=== PATIENT | male | born 1965 | race Caucasian/White ===

== ENCOUNTER 2016-11-18 19:04 | Inpatient (IN) | payer OTHER ==
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
[2016-11-18] MEDS ORDERED: CEFAZOLIN 2 GM/DEXTROSE/100 ML BAG IV ONE ×2 (19:05→19:15)
[2016-11-18] MEDS ORDERED: fentaNYL 100 MCG/2 ML INJ IVP ONE ×3 (19:07→19:20)
[2016-11-18] MEDS ORDERED: TDAP ADULT 0.5 ML INJ (BOOSTRIX) IM ONE (19:08)
[2016-11-18] MEDS ORDERED: SUCCINYLCHOLINE CHLORIDE 200 MG/10 ML VIAL IVP ONE (19:10)
[2016-11-18] MEDS ORDERED: ETOMIDATE 20 MG/10 ML VIAL IVP ONE (19:10)
[2016-11-18] MEDS ORDERED: PROPOFOL/EMULSION 1,000 MG/100 ML BOTTLE IV ONE (19:13)
[2016-11-18] MEDS ORDERED: KETAMINE 100 MG/10 ML SYR IVP ONE ×3 (19:14→19:33)
[2016-11-18] MEDS ORDERED: ceFAZolin 2 GM/DEXTROSE 100 ML IV ONE (19:15)
[2016-11-18] MEDS ORDERED: MIDAZOLAM 2 MG/2 ML VIAL ONE (19:19)
[2016-11-18 19:20] LABS: % IMMATURE GRANULYOCYTES 0.3 % (0.0-1.1); ABSOLUTE IMMATURE GRANULOCYTES 0.02 10^3/uL (0.00-0.10); ADD DIFF? NO; ADD MORPH? NO; ADD SCAN? NO; ATYPICAL LYMPHOCYTE FLAG 20 (0-99); FRAGMENT RBC FLAG 0 (0-99); HEMATOCRIT 45.7 % (40.0-51.0); HEMOGLOBIN 15.6 g/dL (13.7-17.5); LEFT SHIFT FLG 0 (0-99); LIPEMIA HEMOLYSIS FLAG 90 (0-99); MEAN CELL HEMOGLOBIN 31.3 pg (27.9-34.1); MEAN CELL HEMOGLOBIN CONCENTR. 34.1 g/dL (32.4-36.7); MEAN CELL VOLUME 91.6 fL (81.5-99.8); MEAN PLATELET VOLUME 11.4 fL (8.7-11.7); PLATELET CLUMPS FLAG 10 (0-99); PLATELET COUNT 198 10^3/uL (150-400); RED BLOOD CELL COUNT 4.99 10^6/uL (4.40-6.38)
[2016-11-18] MEDS ORDERED: MIDAZOLAM 2 MG/2 ML VIAL IVP ONE ×2 (19:20→19:37)
[2016-11-18] MEDS ORDERED: fentaNYL 100 MCG/2 ML INJ ONE ×2 (19:28→19:34)
[2016-11-18] MEDS ORDERED: ONDANSETRON 4 MG/2 ML VIAL ONE (19:28)
[2016-11-18] MEDS ORDERED: SUCCINYLCHOLINE CHLORIDE*ANESTHESIA ONLY*200 MG/10 ML SYR IVP ONE ×2 (19:34→19:41)
[2016-11-18 19:35] LABS: INR 1.01 (0.83-1.16); PROTIME(PATIENT) 13.2 SEC (12.0-15.0)
[2016-11-18] MEDS ORDERED: ROCURONIUM 100 MG/10 ML VIAL ONE (19:35)
[2016-11-18] MEDS ORDERED: ETOMIDATE 40 MG/20 ML INJ ONE (19:35)
[2016-11-18 19:40] LABS: ANION GAP 16 mEq/L (8-16); CALCIUM 9.5 mg/dL (8.5-10.4); CARBON DIOXIDE 20 mEq/l (22-31); CHLORIDE 104 mEq/L (97-110); CREATININE 0.8 mg/dL (0.7-1.3); GLOMERULAR FILTRATION RATE > 60; GLUCOSE 116 mg/dL (70-100); SODIUM 140 mEq/L (134-144)
[2016-11-18 19:45] LABS: APTT 20.6 SEC (23.0-38.0)
[2016-11-18] MEDS ORDERED: IOPAMIDOL (ISOVUE-300) 150 ML BTL IV ONE (20:05)
[2016-11-18] MEDS ORDERED: IOPAMIDOL (ISOVUE 370) 100 ML BTL IV ONE (20:16)
[2016-11-18 20:44] LABS: % IMMATURE GRANULYOCYTES 0.3 % (0.0-1.1); ABSOLUTE IMMATURE GRANULOCYTES 0.04 10^3/uL (0.00-0.10); ADD DIFF? NO; ADD MORPH? NO; ADD SCAN? NO; ATYPICAL LYMPHOCYTE FLAG 0 (0-99); FRAGMENT RBC FLAG 0 (0-99); HEMATOCRIT 44.6 % (40.0-51.0); HEMOGLOBIN 15.4 g/dL (13.7-17.5); LEFT SHIFT FLG 0 (0-99); LIPEMIA HEMOLYSIS FLAG 90 (0-99); MEAN CELL HEMOGLOBIN 32.3 pg (27.9-34.1); MEAN CELL HEMOGLOBIN CONCENTR. 34.5 g/dL (32.4-36.7); MEAN CELL VOLUME 93.5 fL (81.5-99.8); PLATELET CLUMPS FLAG 0 (0-99); PLATELET COUNT 172 10^3/uL (150-400); RED BLOOD CELL COUNT 4.77 10^6/uL (4.40-6.38); RED CELL DISTRIBUTION WIDTH 13.2 % (11.5-15.2)
[2016-11-18 20:49] LABS: INR 1.16 (0.83-1.16); PROTIME(PATIENT) 14.8 SEC (12.0-15.0)
[2016-11-18 20:50] LABS: APTT 22.4 SEC (23.0-38.0)
[2016-11-18] MEDS ORDERED: DEXMEDETOMIDINE HCL 200 MCG/2 ML VIAL IV ONE (21:12)
[2016-11-18] MEDS ORDERED: NALOXONE HCL 0.4 MG/ML INJ IVP PRN ×2 (21:56→22:00)
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
[2016-11-18] MEDS: HYDROmorphONE/DILAUDID 6 MG/30 ML PCA IV PRN (22:22)
[2016-11-18] MEDS: ONDANSETRON 4 MG/2 ML VIAL IVP PRN (22:25)
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
[2016-11-18] MEDS: ERTAPENEM 1 GM in NS 100 ML IV SCH (22:27)
[2016-11-18 22:29] LABS: INR 1.13 (0.83-1.16); PROTIME(PATIENT) 14.4 SEC (12.0-15.0)
[2016-11-18 22:31] LABS: ANION GAP 8 mEq/L (8-16); CALCIUM 8.2 mg/dL (8.5-10.4); CARBON DIOXIDE 21 mEq/l (22-31); CHLORIDE 105 mEq/L (97-110); CREATININE 0.8 mg/dL (0.7-1.3); GLOMERULAR FILTRATION RATE > 60; GLUCOSE 140 mg/dL (70-100); POTASSIUM 4.9 mEq/L (3.5-5.2); SODIUM 134 mEq/L (134-144)
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
[2016-11-19] MEDS: HYDROmorphONE/DILAUDID 6 MG/30 ML PCA IV PRN ×3 (06:06→18:34)
[2016-11-19] MEDS ORDERED: DIAZEPAM 5 MG TAB PO PRN (08:07)
[2016-11-19] MEDS: NS 1,000 ML IV SCH ×2 (09:00→17:59)
[2016-11-19 09:11] LABS: % IMMATURE GRANULYOCYTES 0.2 % (0.0-1.1); ABSOLUTE IMMATURE GRANULOCYTES 0.02 10^3/uL (0.00-0.10); ADD DIFF? NO; ADD MORPH? NO; ADD SCAN? NO; ATYPICAL LYMPHOCYTE FLAG 0 (0-99); FRAGMENT RBC FLAG 0 (0-99); HEMATOCRIT 45.3 % (40.0-51.0); HEMOGLOBIN 15.4 g/dL (13.7-17.5); LEFT SHIFT FLG 30 (0-99); LIPEMIA HEMOLYSIS FLAG 90 (0-99); MEAN CELL HEMOGLOBIN 31.1 pg (27.9-34.1); MEAN CELL VOLUME 91.5 fL (81.5-99.8); MEAN PLATELET VOLUME 12.2 fL (8.7-11.7); PLATELET CLUMPS FLAG 0 (0-99); PLATELET COUNT 161 10^3/uL (150-400); RED BLOOD CELL COUNT 4.95 10^6/uL (4.40-6.38); RED CELL DISTRIBUTION WIDTH 13.4 % (11.5-15.2)
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
[2016-11-19 09:34] LABS: ANION GAP 9 mEq/L (8-16); CALCIUM 8.1 mg/dL (8.5-10.4); CARBON DIOXIDE 22 mEq/l (22-31); CHLORIDE 108 mEq/L (97-110); CREATININE 0.8 mg/dL (0.7-1.3); GLOMERULAR FILTRATION RATE > 60; GLUCOSE 143 mg/dL (70-100); POTASSIUM 5.2 mEq/L (3.5-5.2); SODIUM 139 mEq/L (134-144)
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
[2016-11-19] MEDS: ONDANSETRON 4 MG/2 ML VIAL IVP PRN (16:15)
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
[2016-11-19] MEDS: DIAZEPAM 10 MG/2 ML SYR IVP PRN (20:23)
[2016-11-19] MEDS: ERTAPENEM 1 GM in NS 100 ML IV SCH (20:24)
[2016-11-19] MEDS: LORazepam 2 MG/ML INJ IVP PRN (21:38)
[2016-11-20] MEDS: HYDROmorphONE/DILAUDID 6 MG/30 ML PCA IV PRN ×2 (02:55→16:18)
[2016-11-20] MEDS: DIAZEPAM 10 MG/2 ML SYR IVP PRN (03:02)
[2016-11-20] MEDS ORDERED: POLYMYXIN B SULFATE 500,000 UNIT/10 ML SYR IRR ONE (08:52)
[2016-11-20] MEDS ORDERED: BUPIVACAINE 0.5% 30 ML SDV ONE (08:52)
[2016-11-20] MEDS ORDERED: SKIN ADHESIVE (DERMABOND) 1 EACH TP ONE (08:52)
[2016-11-20] MEDS ORDERED: BACITRACIN 50,000 UNITS/10 ML SYR IRR ONE (08:53)
[2016-11-20] MEDS ORDERED: ceFAZolin 1 GM/5 ML SYR ONE ×2 (08:58→09:22)
[2016-11-20] MEDS ORDERED: CEFAZOLIN 2 GM/DEXTROSE/100 ML BAG IV ONE (09:11)
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
[2016-11-20] MEDS ORDERED: ceFAZolin 2 GM/DEXTROSE 100 ML IV ONE (10:04)
[2016-11-20] MEDS ORDERED: fentaNYL 100 MCG/2 ML INJ ONE ×2 (10:33→11:52)
[2016-11-20] MEDS ORDERED: MIDAZOLAM 2 MG/2 ML VIAL ONE (10:35)
[2016-11-20] MEDS ORDERED: PROPOFOL 200 MG/20 ML VIAL ONE (10:36)
[2016-11-20] MEDS ORDERED: ceFAZolin 1 GM VIAL ONE (11:00)
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
[2016-11-20] MEDS: ERTAPENEM 1 GM in NS 100 ML IV SCH (20:58)
[2016-11-20] MEDS: NS 1,000 ML IV SCH (21:00)
[2016-11-21] MEDS: DIAZEPAM 10 MG/2 ML SYR IVP PRN ×2 (01:16→20:42)
[2016-11-21] MEDS: HYDROmorphONE/DILAUDID 6 MG/30 ML PCA IV PRN ×4 (01:16→17:12)
[2016-11-21 05:32] LABS: % IMMATURE GRANULYOCYTES 0.5 % (0.0-1.1); ABSOLUTE IMMATURE GRANULOCYTES 0.04 10^3/uL (0.00-0.10); ADD DIFF? NO; ADD MORPH? NO; ADD SCAN? NO; ATYPICAL LYMPHOCYTE FLAG 0 (0-99); FRAGMENT RBC FLAG 0 (0-99); HEMATOCRIT 33.1 % (40.0-51.0); HEMOGLOBIN 10.9 g/dL (13.7-17.5); LEFT SHIFT FLG 0 (0-99); LIPEMIA HEMOLYSIS FLAG 80 (0-99); MEAN CELL HEMOGLOBIN 31.5 pg (27.9-34.1); MEAN CELL HEMOGLOBIN CONCENTR. 32.9 g/dL (32.4-36.7); MEAN CELL VOLUME 95.7 fL (81.5-99.8); MEAN PLATELET VOLUME 12.1 fL (8.7-11.7); PLATELET CLUMPS FLAG 0 (0-99); PLATELET COUNT 108 10^3/uL (150-400); RED BLOOD CELL COUNT 3.46 10^6/uL (4.40-6.38); RED CELL DISTRIBUTION WIDTH 13.8 % (11.5-15.2)
[2016-11-21 05:41] LABS: ANION GAP 3 mEq/L (8-16); CALCIUM 7.8 mg/dL (8.5-10.4); CARBON DIOXIDE 29 mEq/l (22-31); CHLORIDE 105 mEq/L (97-110); CREATININE 0.7 mg/dL (0.7-1.3); GLOMERULAR FILTRATION RATE > 60; GLUCOSE 97 mg/dL (70-100); POTASSIUM 3.9 mEq/L (3.5-5.2); SODIUM 137 mEq/L (134-144)
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
[2016-11-21 12:55] LABS: HEMATOCRIT 33.7 % (40.0-51.0); HEMOGLOBIN 11.4 g/dL (13.7-17.5)
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
[2016-11-21] MEDS: ERTAPENEM 1 GM in NS 100 ML IV SCH (20:42)
[2016-11-22] MEDS: LORazepam 2 MG/ML INJ IVP PRN (00:22)
[2016-11-22] MEDS: NS 1,000 ML IV SCH (00:22)
[2016-11-22 04:03] LABS: % IMMATURE GRANULYOCYTES 0.3 % (0.0-1.1); ABSOLUTE IMMATURE GRANULOCYTES 0.02 10^3/uL (0.00-0.10); ADD DIFF? NO; ADD MORPH? NO; ADD SCAN? NO; ATYPICAL LYMPHOCYTE FLAG 0 (0-99); FRAGMENT RBC FLAG 0 (0-99); HEMATOCRIT 33.3 % (40.0-51.0); HEMOGLOBIN 11.2 g/dL (13.7-17.5); LEFT SHIFT FLG 0 (0-99); LIPEMIA HEMOLYSIS FLAG 80 (0-99); MEAN CELL HEMOGLOBIN 31.5 pg (27.9-34.1); MEAN CELL HEMOGLOBIN CONCENTR. 33.6 g/dL (32.4-36.7); MEAN CELL VOLUME 93.5 fL (81.5-99.8); MEAN PLATELET VOLUME 11.5 fL (8.7-11.7); PLATELET CLUMPS FLAG 30 (0-99); PLATELET COUNT 135 10^3/uL (150-400); RED BLOOD CELL COUNT 3.56 10^6/uL (4.40-6.38); RED CELL DISTRIBUTION WIDTH 13.4 % (11.5-15.2)
[2016-11-22 04:21] LABS: ANION GAP 9 mEq/L (8-16); CALCIUM 8.1 mg/dL (8.5-10.4); CARBON DIOXIDE 24 mEq/l (22-31); CHLORIDE 105 mEq/L (97-110); CREATININE 0.6 mg/dL (0.7-1.3); GLOMERULAR FILTRATION RATE > 60; GLUCOSE 100 mg/dL (70-100); POTASSIUM 3.3 mEq/L (3.5-5.2); SODIUM 138 mEq/L (134-144)
[2016-11-22] MEDS: HYDROmorphONE/DILAUDID 6 MG/30 ML PCA IV PRN ×3 (04:44→23:22)
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
[2016-11-22] MEDS ORDERED: DIAZEPAM 5 MG TAB PO PRN (19:54)
[2016-11-22] MEDS: ERTAPENEM 1 GM in NS 100 ML IV SCH (20:37)
[2016-11-23 03:16] LABS: ANION GAP 7 mEq/L (8-16); CALCIUM 8.1 mg/dL (8.5-10.4); CARBON DIOXIDE 26 mEq/l (22-31); CHLORIDE 106 mEq/L (97-110); CREATININE 0.6 mg/dL (0.7-1.3); GLOMERULAR FILTRATION RATE > 60; GLUCOSE 104 mg/dL (70-100); POTASSIUM 3.1 mEq/L (3.5-5.2); SODIUM 139 mEq/L (134-144)
[2016-11-23 03:21] LABS: % IMMATURE GRANULYOCYTES 0.2 % (0.0-1.1); ABSOLUTE IMMATURE GRANULOCYTES 0.01 10^3/uL (0.00-0.10); ADD DIFF? NO; ADD MORPH? NO; ADD SCAN? NO; ATYPICAL LYMPHOCYTE FLAG 10 (0-99); FRAGMENT RBC FLAG 0 (0-99); HEMATOCRIT 33.6 % (40.0-51.0); HEMOGLOBIN 11.5 g/dL (13.7-17.5); LEFT SHIFT FLG 0 (0-99); LIPEMIA HEMOLYSIS FLAG 90 (0-99); MEAN CELL HEMOGLOBIN 31.8 pg (27.9-34.1); MEAN CELL HEMOGLOBIN CONCENTR. 34.2 g/dL (32.4-36.7); MEAN CELL VOLUME 92.8 fL (81.5-99.8); MEAN PLATELET VOLUME 11.5 fL (8.7-11.7); PLATELET CLUMPS FLAG 0 (0-99); PLATELET COUNT 172 10^3/uL (150-400); RED BLOOD CELL COUNT 3.62 10^6/uL (4.40-6.38); RED CELL DISTRIBUTION WIDTH 13.3 % (11.5-15.2)
[2016-11-23] MEDS ORDERED: MAGNESIUM SULF 1 GM/DEXTROSE 100 ML IV ONE (09:34)
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
[2016-11-23] MEDS: POTASSIUM Cl (KCl) 100 ML IV SCH ×4 (11:47→16:59)
[2016-11-23 12:31] LABS: % IMMATURE GRANULYOCYTES 0.5 % (0.0-1.1); ABSOLUTE IMMATURE GRANULOCYTES 0.03 10^3/uL (0.00-0.10); ADD DIFF? NO; ADD MORPH? NO; ADD SCAN? NO; ATYPICAL LYMPHOCYTE FLAG 30 (0-99); FRAGMENT RBC FLAG 0 (0-99); HEMATOCRIT 34.8 % (40.0-51.0); HEMOGLOBIN 12.3 g/dL (13.7-17.5); LEFT SHIFT FLG 0 (0-99); LIPEMIA HEMOLYSIS FLAG 90 (0-99); MEAN CELL HEMOGLOBIN 32.4 pg (27.9-34.1); MEAN CELL HEMOGLOBIN CONCENTR. 35.3 g/dL (32.4-36.7); MEAN CELL VOLUME 91.6 fL (81.5-99.8); MEAN PLATELET VOLUME 10.7 fL (8.7-11.7); PLATELET CLUMPS FLAG 0 (0-99); PLATELET COUNT 186 10^3/uL (150-400); RED CELL DISTRIBUTION WIDTH 13.3 % (11.5-15.2)
[2016-11-23] MEDS: HYDROmorphONE/DILAUDID 1 MG/ML SYR IVP PRN ×2 (16:05→19:58)
[2016-11-23] MEDS ORDERED: TEMAZEPAM 15 MG CAP PO PRN (17:36)
[2016-11-23] MEDS: ONDANSETRON 4 MG/2 ML VIAL IVP PRN (18:10)
[2016-11-23] MEDS: ENOXAPARIN 40 MG/0.4 ML SYR SC SCH ×2 (18:11→19:59)
[2016-11-23] MEDS: ERTAPENEM 1 GM in NS 100 ML IV SCH (19:59)
[2016-11-23] MEDS: SENNOSIDES/DOCUSATE SODIUM TAB PO SCH (19:59)
[2016-11-24] MEDS: LORazepam 2 MG/ML INJ IVP PRN (01:14)
[2016-11-24] MEDS: HYDROmorphONE/DILAUDID 1 MG/ML SYR IVP PRN (01:14)
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
[2016-11-24 08:22] LABS: HEMATOCRIT 33.2 % (40.0-51.0); HEMOGLOBIN 11.3 g/dL (13.7-17.5)
[2016-11-24 08:41] LABS: POTASSIUM 3.4 mEq/L (3.5-5.2)
[2016-11-24] MEDS: SENNOSIDES/DOCUSATE SODIUM TAB PO SCH ×2 (09:10→20:57)
[2016-11-24] MEDS ORDERED: ALPRAZolam 1 MG TAB PO PRN (09:41)
[2016-11-24] MEDS: OXYCODONE/APAP 5/325 TAB PO PRN ×4 (10:39→22:13)
[2016-11-24] MEDS: MELATONIN 3 MG TAB PO SCH (20:49)
[2016-11-24] MEDS ORDERED: ALPRAZolam 0.25 MG TAB PO PRN (21:00)
[2016-11-25] MEDS: OXYCODONE/APAP 5/325 TAB PO PRN ×3 (06:26→22:03)
[2016-11-25] MEDS: HYDROmorphONE/DILAUDID 1 MG/ML SYR IVP PRN ×3 (06:27→17:09)
[2016-11-25] MEDS: SENNOSIDES/DOCUSATE SODIUM TAB PO SCH ×2 (09:22→20:34)
[2016-11-25] MEDS: ENOXAPARIN 40 MG/0.4 ML SYR SC SCH (09:23)
[2016-11-25] MEDS: ONDANSETRON 4 MG/2 ML VIAL IVP PRN ×2 (13:36→17:09)
[2016-11-25] MEDS ORDERED: DICYCLOMINE 20 MG TAB PO PRN (16:19)
[2016-11-25] MEDS: MELATONIN 3 MG TAB PO SCH (20:33)
[2016-11-25] MEDS: KETOROLAC 30 MG/1 ML SDV IVP PRN (20:34)
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
[2016-11-26] MEDS: KETOROLAC 30 MG/1 ML SDV IVP PRN (06:45)
--- NOTE | 2016-11-26 09:29 | TRAUMAPN ---
Assessment/Plan: no overnight issues. pain better with toradol. bladder/rectum spasms decreasing. BM starting to firm up and become less black. AVSS. comfortable. abd soft, less distended. incisions clean. improving. home today. Objective: Vital Signs Temp Pulse Resp BP Pulse Ox 37.0 C 48 L 16 136/70 H 98 11/25/16 22:05 11/25/16 22:05 11/25/16 22:05 11/25/16 22:05 11/25/16 22:05 Laboratory Results 11/24/16 08:12 11/24/16 08:12 11/25/16 11/26/16 11/27/16 05:59 05:59 05:59 Intake Total 1100 1000 Output Total 1 Balance 1099 1000 PT 14.4 SEC (12.0-15.0) 11/18/16 22:15 INR 1.13 (0.83-1.16) 11/18/16 22:15
[2016-11-26 09:56] VITALS: BP 119/72; PULSE 55; RESP 14; TEMP 97.4; O2SAT 94
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
== END 2016-11-26 09:56 | disposition home or self-care (01) | DRG 959 ==
LOC: EEVIPCON 19:04 → EDBD 19:04 → MERGE 19:22 → F2N 21:47
PROVIDERS: ADMIT Surgery; ATTEND Surgery
PROC: 0PBK0ZZ Excision of Right Ulna, Open Approach (ICD-10-PCS; principal; 2016-11-18 19:23)
PROC: 0LQ50ZZ Repair Right Lower Arm and Wrist Tendon, Open Approach (ICD-10-PCS; principal; 2016-11-18 19:23)
PROC: 0PSK04Z Reposition Right Ulna with Internal Fixation Device, Open Approach (ICD-10-PCS; principal; 2016-11-18 19:23)
PROC: 0JQG0ZZ Repair Right Lower Arm Subcutaneous Tissue and Fascia, Open Approach (ICD-10-PCS; principal; 2016-11-18 19:23)
PROC: 0DB80ZZ Excision of Small Intestine, Open Approach (ICD-10-PCS; 2016-11-18 19:23)
PROC: 0BH17EZ Insertion of Endotracheal Airway into Trachea, Via Natural or Artificial Opening (ICD-10-PCS; 2016-11-18 19:23)
PROC: 0JB80ZZ Excision of Abdomen Subcutaneous Tissue and Fascia, Open Approach (ICD-10-PCS; 2016-11-20)
PROC: 0PUK0KZ Supplement Right Ulna with Nonautologous Tissue Substitute, Open Approach (ICD-10-PCS; 2016-11-20)
PROC: 0PBK0ZZ Excision of Right Ulna, Open Approach (ICD-10-PCS; 2016-11-20)
DX: S52.601B Unspecified fracture of lower end of right ulna, initial encounter for open fracture type I or II (principal); S36.4 Injury of small intestine; R40.2412 Glasgow coma scale score 13-15, at arrival to emergency department; E83.42 Hypomagnesemia; F43.10 Post-traumatic stress disorder, unspecified; W32.0XXA Accidental handgun discharge, initial encounter
CPT/HCPCS: 82947-QW; 96374; 97116-GP; 97162-GP; 97165-GO; C1713; C1769; J0330; J0690; J1170; J1335; J1650; J1885; J2060; J2250; J2405; J2704; J3010; J3475; P9016; Q9967

== ENCOUNTER 2017-07-10 07:56 | Day surgery (SDC) | payer OTHER ==
[2017-07-10] MEDS ORDERED: LR 1,000 ML IV ONE (08:01)
[2017-07-10] MEDS ORDERED: PROPOFOL/EMULSION 500 MG/50 ML BOTTLE IV ONE (09:38)
[2017-07-10] MEDS ORDERED: MIDAZOLAM 2 MG/2 ML VIAL ONE (09:38)
[2017-07-10] MEDS ORDERED: LIDOCAINE 2% 5 ML SDV ONE (09:38)
[2017-07-10] MEDS ORDERED: GLYCOPYRROLATE 0.2 MG/1 ML VIAL ONE (09:50)
[2017-07-10] MEDS ORDERED: NALOXONE HCL 0.4 MG/ML INJ IVP PRN (09:59)
[2017-07-10] MEDS ORDERED: ONDANSETRON 4 MG/2 ML VIAL IVP PRN (09:59)
[2017-07-10] MEDS ORDERED: NS 500 ML IV PRN (09:59)
[2017-07-10] MEDS ORDERED: ALBUTEROL 3 ML DEYVIAL IH PRN (09:59)
[2017-07-10] MEDS ORDERED: fentaNYL 100 MCG/2 ML INJ IVP PRN (09:59)
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
--- NOTE | 2017-07-10 10:16 | POSTANESTH ---
Post Anesthetic Evaluation Cardiovascular Status: Normal, Stable Respiratory Status: Normal, Stable Level of Consciousness/Mental Status: Can Participate in Eval Pain Control: Adequate, Prn Tx Ordered Nausea/Vomiting Control: Adequate, Prn Tx Ordered Complications Possibly Related to Anesthesia: None Noted
[2017-07-10 10:20] VITALS: PULSE 55
--- NOTE | 2017-07-10 10:20 | GIREPORT ---
[facility] - Endoscopy Department Patient Name: Betzaida Wang Procedure Date: 07/10/2017 9:24 AM Patient Type: Outpatient Attending MD/ ER Physician: Pawel Kirkland MD Procedure: Colonoscopy Indications: Screening patient at increased risk: Family history of 1st-degree relat everette with colorectal cancer at age 60 years (or older) Providers: Pawel Kirkland MD Medicines: Propofol per Anesthesia Complications: No immediate complications. Description of Procedure: After obtaining informed consent, the scope was passed under direct vis ion. Throughout the procedure, the patient's blood pressure, pulse, and oxyg en saturations were monitored continuously. The Colonoscope with irrigatio n channel was introduced through the anus and advanced to the cecum, identified by appendiceal orifice and ileocecal valve. The colonoscopy was somewhat difficult due to post-surgical anatomy. The patient tolerated the procedure well. The quality of the bowel preparation was excellent. The ileocecal valve, appendiceal orifice, and rectum were photographed. Findings: The perianal and digital rectal examinations were normal. Pertinent negatives include normal sphincter tone, no palpable rectal lesions and normal prostate (size, shape, and consistency). The entire examined colon appeared normal. Estimated Blood Loss: Estimated blood loss: none. Post Op Diagnosis: - The entire examined colon is normal. - No specimens collected. Recommendation: - Repeat colonoscopy in 5 years for screening purposes. - Resume previous diet. - Continue present medications. - Patient has a contact number available for emergencies. The signs and symptoms of potential delayed complications were discussed with the pat ient. Return to normal activities tomorrow. Written discharge instructions we re provided to the patient. - Thank you for allowing me to be involved in the care of your patient. Attending Participation: I personally performed the entire procedure without the assistance of a fellow, resident or surg ical compliance assistant. Pawel Kirkland MD Pawel Kirkland MD 07/10/2017 10:20:03 AM This report has been signed electronicallyDavid MD Martia Number of Addenda: 0 Note Initiated On: 07/10/2017 9:24 AM Total Procedure Duration Time 0 hours 20 minutes 50 seconds [email or web address]
[2017-07-10 10:25] VITALS: TEMP 97.7
[2017-07-10 10:51] VITALS: O2SAT 96
[2017-07-10 11:18] VITALS: RESP 16
[2017-07-10 11:20] VITALS: BP 115/73
== END 2017-07-10 11:12 | disposition home or self-care (01) ==
LOC: FSGY 07:56
PROVIDERS: ATTEND Internal Medicine Gastroenterology
PROC: 0DJD8ZZ Inspection of Lower Intestinal Tract, Via Natural or Artificial Opening Endoscopic (ICD-10-PCS; principal; 2017-07-10 09:30)
DX: Z12.11 Encounter for screening for malignant neoplasm of colon (principal); Z80.0 Family history of malignant neoplasm of digestive organs
CPT/HCPCS: J2250; J2704

== ENCOUNTER → 2018-05-16 | Outpatient (CLI) | payer OTHER | LOC: BMCIMAGING 14:44 | PROVIDERS: ATTEND Orthopaedic Surgery | DX: M19.041 Primary osteoarthritis, right hand (principal) ==